=== PATIENT | female | born 1935 | race Caucasian/White ===

== ENCOUNTER 2016-09-24 02:24 | Inpatient (IN) | payer OTHER ==
[~2016-09-24] VITALS: Ht 162.6 cm; Wt 99.1 kg
--- NOTE | ~2016-09-24 | EKG ---
[place] [address] [employer] [facility] [place] [address] ELECTROCARDIOGRAM REPORT Name: KEMAL MI Room #: 212-P ADM IN M.R.#: [id number] Admission: 09/24/16 Attend Phys: Khurram Mendez MD Discharge: Date of : 37 Report #: [id number] THIS REPORT FOR: //name// [facility] ED Test Date: 2016-09-24 Test Time: 02:34:39 Pat Name: KEMAL MI Department: Room: 212 Gender: F [employer]: COOKIE : 1935 Requested By: [place] Order Number: [id number] MD: Henrique Taylor Measurements Intervals [place] Rate: 88 P: 29 WI: 154 QRS: -31 QRSD: 96 T: 58 QT: 392 QTc: 475 Interpretive Statements Sinus rhythm Left ventricular hypertrophy No previous ECG available for comparison Electronically Signed On 09-25-2016 15:13:48 CDT by Henrique Taylor [email or web address] <ELECTRONICALLY SIGNED> By: Henrique Taylor MD, [facility] 09/25/16 1513 [id number] Henrique Taylor MD, FACC /EPI
[~2016-09-24 02:24] MED LIST: ADALAT CC60 MG PO; AFEDITAB CR30 MG PO; AFEDITAB CR60 M1 PO; ALLEGRA180 MG PO; ALPHAGAN P10 ML OP; ALPRAZOLAM 0.50.5 MG PO; ASPIRIN325 PO; BASE, PCCA RAPID1 GM PO; BISACODYL5 MG PO; BYSTOLIC10 MG PO; BYSTOLIC20 MG PO; CENTRUM SILVER1 EAC4 PO; CLARITIN10 MG PO; CLONIDINE HCL0.2 M2 PO; COMBIGAN EYE DR10 ML; COQ-10100 MG PO; COREG3.125 MG PO; COZAAR 25 MG TA25 M2 PO; DIOVAN 80 MG TA80 M1 PO; DIOVAN160 MG PO; DITROPAN XL10 M1 PO; DUONEB 2.5-0.5 M3 ML INH; FLONASE 0.05%50 MCG NASAL; FUROSEMIDE 40 M40 M1 PO; GLUCOPHAGE1000 MG PO; GLYCOLAX POWDER17 G1 PO; HYDROCODONE-CHLORPHE PO; IBUPROFEN 800800 M1 PO; KLOR-CON M2020 MEQ PO; LASIX 40 MG TAB40 M2 PO; LEVAQUIN 500 M500 M4 PO; LEVEMIR SUBQ; LEXAPRO 10 MG T10 M1 PO; LEXAPRO 10 MG T10 M2 PO; LISINOPRIL40 MG PO; MAG-OXIDE400 MG PO; MAGNESIUM400 MG PO; MELATONIN3 MG PO; MICRO K PO; MUCINEX TA600 MG/TA2 PO; NIFEDIPINE ER90 M1 PO; NORCO 5-325 TA1 EACH PO; OMEPRAZOLE40 MG PO; PODIAPN CAPSUL1 EACH PO; POTASSIUM20 PO; PRAVACHOL40 MG PO; PREDNISONE 10 M10 MG; PREDNISONE 10 M10 MG PO; PREDNISONE 20 M20 MG PO; PROAIR HFA8.5 GM INH; PSEUDOEPHEDRINE30 MG PO; ROBITUSSIN100 MG/53 PO; SENOKOT-S1 TA1 PO; TESSALON PERLE100 M1 PO; TESSALON PERLE100 MG PO; TUSSIONEX PENN473 ML PO; TYLENOL325 MG PO; VENLAFAXIN37.5 MG/1 PO; VIT D; VITAMIN B-12500 MCG PO; VITAMIN B-6100 MG PO; VITAMIN D 5050000 I1 PO; XANAX 0.5 MG0.5 MG PO; ZPAK PO; ZYRTEC10 M1 PO
[2016-09-24 03:04] LABS: ABSOLUTE NEUTROPHILS 4.3 thou/uL (1.4-8.2); BASOPHILS 0.4 % (0.0-2.0); EOSINOPHILS 3.2 % (0.0-3.0); HEMOGLOBIN 13.6 gm/dL (12.0-15.0); LYMPHOCYTES 38.2 % (24.0-44.0); MCHC 33.2 g/dL (28.0-37.0); MCV 90.5 fL (80.0-100.0); MONOCYTES 9.4 % (1.0-8.0); PLATELET COUNT 226 thou/uL (150-400); POLYS 48.8 % (36.0-66.0); RBC 4.53 mil/uL (4.20-5.00); RDW 13.7 % (10.5-14.5); WBC 8.8 thou/uL (4.0-11.0)
[2016-09-24 03:05] LABS: MANUAL DIFF NO
[2016-09-24 03:07] LABS: ANION GAP 7 mmol/L (7-16); BUN 14 mg/dL (7-18); CALCIUM 9.6 mg/dL (8.5-10.1); CHLORIDE 98 mmol/L (98-107); CO2 30 mmol/L (21-32); CREATININE 0.9 mg/dL (0.6-1.3); GLUCOSE 167 mg/dL (70-99); POTASSIUM 3.5 mmol/L (3.5-5.1); SODIUM 135 mmol/L (136-145)
[2016-09-24 03:14] LABS: APTT 25.9 Seconds (24.5-32.8); PROTIME 10.2 Seconds (9.3-11.4)
[2016-09-24 03:19] LABS: ALBUMIN 3.7 g/dL (3.4-5.0); ALKALINE PHOSPHATASE 98 U/L (46-116); NT-PRO BRAIN NAT PEPTIDE 267 pg/mL (<300); SGOT 46 U/L (15-37); SGPT 54 U/L (30-65); TOTAL BILIRUBIN 0.4 mg/dL (<0.1-1.0); TOTAL PROTEIN 7.4 g/dL (6.4-8.2); TROPONIN-I < 0.04 ng/mL (<0.04-0.07)
[2016-09-24 06:08] LABS: CHOLESTEROL 155 mg/dL (<200); HDL CHOLESTEROL 41 mg/dL (>40); LDL CHOLESTEROL 81 mg/dL (<100); TC:HDL 3.8 Ratio (Not establshd); TRIGLYCERIDE 167 mg/dL (<150); VLDL 33 mg/dL (<40)
[2016-09-24] MEDS ORDERED: LANTUS SOL100 UNIT/1 SQ (06:21)
[2016-09-24] MEDS ORDERED: NORVASC5 MG PO (06:22)
[2016-09-24] MEDS ORDERED: ASPIR 8181 MG PO (06:23)
[2016-09-24] MEDS ORDERED: CYMBALTA60 MG PO (06:25)
[2016-09-24] MEDS ORDERED: MIRALAX255 GM PO (06:29)
[2016-09-24] MEDS ORDERED: SPIRIVA INH (06:33)
[2016-09-24] MEDS ORDERED: VITAMIN D1000 UNI1 PO (07:27)
[2016-09-24] MEDS ORDERED: COZAAR 25 MG TA25 M1 PO (07:33)
[2016-09-24] MEDS ORDERED: TIMOLOL MA0.25 %/5 M OPHTHALMIC (07:49)
[2016-09-24] MEDS ORDERED: XALATAN2.5 ML OPHTHALMIC (07:53)
[2016-09-24] MEDS ORDERED: LOVASTATIN 20 M20 MG PO (07:54)
[2016-09-24] MEDS ORDERED: TRAZODONE HCL100 MG PO (07:55)
[2016-09-24] MEDS ORDERED: VENTOLIN HFA 1818 GM INH (08:04)
[2016-09-24] MEDS ORDERED: BIOFREEZE118 ML TP (08:10)
[2016-09-25 05:00] LABS: ABSOLUTE NEUTROPHILS 4.3 thou/uL (1.4-8.2); BASOPHILS 0.4 % (0.0-2.0); EOSINOPHILS 3.1 % (0.0-3.0); HEMATOCRIT 38.7 % (37.0-47.0); HEMOGLOBIN 12.8 gm/dL (12.0-15.0); LYMPHOCYTES 42.1 % (24.0-44.0); MCH 30.3 pg (26.0-34.0); MCHC 33.1 g/dL (28.0-37.0); MCV 91.5 fL (80.0-100.0); MONOCYTES 8.9 % (1.0-8.0); PLATELET COUNT 227 thou/uL (150-400); POLYS 45.5 % (36.0-66.0); RBC 4.23 mil/uL (4.20-5.00); RDW 14.1 % (10.5-14.5); WBC 9.4 thou/uL (4.0-11.0)
[2016-09-25 05:01] LABS: MANUAL DIFF NO
[2016-09-25 05:27] LABS: ALBUMIN 3.3 g/dL (3.4-5.0); CREATININE 0.8 mg/dL (0.6-1.3); MAGNESIUM 2.3 mg/dL (1.8-2.4); POTASSIUM 3.7 mmol/L (3.5-5.1); TOTAL BILIRUBIN 0.4 mg/dL (<0.1-1.0); TOTAL PROTEIN 6.9 g/dL (6.4-8.2)
[2016-09-26 04:15] LABS: HEMATOCRIT 39.8 % (37.0-47.0); HEMOGLOBIN 13.1 gm/dL (12.0-15.0); MCHC 32.8 g/dL (28.0-37.0); MCV 91.4 fL (80.0-100.0); RBC 4.35 mil/uL (4.20-5.00); RDW 13.8 % (10.5-14.5); WBC 8.4 thou/uL (4.0-11.0)
[2016-09-26 04:30] LABS: ALBUMIN 3.5 g/dL (3.4-5.0); CALCIUM 9.2 mg/dL (8.5-10.1); CREATININE 0.9 mg/dL (0.6-1.3); POTASSIUM 4.3 mmol/L (3.5-5.1); TOTAL BILIRUBIN 0.3 mg/dL (<0.1-1.0); TOTAL PROTEIN 7.2 g/dL (6.4-8.2)
== END 2016-09-26 15:17 | DRG 293 ==
LOC: ER 02:24 → 2N 04:07 → EROBS 04:07 → 2N 04:27
PROVIDERS: Emergency Medicine; Hospitalist; Nurse Practitioner
DX: I11.0 Hypertensive heart disease with heart failure (principal); E11.65 Type 2 diabetes mellitus with hyperglycemia; I25.10 Atherosclerotic heart disease of native coronary artery without angina pectoris; I50.9 Heart failure, unspecified; J45.909 Unspecified asthma, uncomplicated; E78.5 Hyperlipidemia, unspecified; J47.9 Bronchiectasis, uncomplicated; I35.0 Nonrheumatic aortic (valve) stenosis; F03.90 Unspecified dementia, unspecified severity, without behavioral disturbance, psychotic disturbance, mood disturbance, and anxiety; G47.33 Obstructive sleep apnea (adult) (pediatric); E66.9 Obesity, unspecified; E78.00 Pure hypercholesterolemia, unspecified; E03.9 Hypothyroidism, unspecified; F32.9 Major depressive disorder, single episode, unspecified; Z96.653 Presence of artificial knee joint, bilateral; Z95.5 Presence of coronary angioplasty implant and graft; Z90.710 Acquired absence of both cervix and uterus; Z88.0 Allergy status to penicillin; Z91.013 Allergy to seafood; Z68.37 Body mass index [BMI] 37.0-37.9, adult; Z90.49 Acquired absence of other specified parts of digestive tract; Z87.01 Personal history of pneumonia (recurrent); Z99.81 Dependence on supplemental oxygen; Z79.82 Long term (current) use of aspirin; Z79.899 Other long term (current) drug therapy; Z91.041 Radiographic dye allergy status; Z82.49 Family history of ischemic heart disease and other diseases of the circulatory system; Z87.891 Personal history of nicotine dependence
CPT/HCPCS: 10081